=== PATIENT | female | born 1940 | race African-American/Black ===

== ENCOUNTER 2023-11-30 03:24 | Inpatient (IN) | payer OTHER ==
[~2023-11-30] VITALS: Ht 167.6 cm; Wt 75.3 kg
[2023-11-30 05:13] LABS: CHLORIDE 100 mEq/L (98-107); POTASSIUM 3.4 mEq/L (3.5-5.1); SODIUM 135 mEq/L (136-145)
[2023-11-30 05:14] LABS: CALCIUM 9.5 mg/dL (8.7-10.4); CARBON DIOXIDE 29 mEq/L (21-32)
[2023-11-30 05:19] LABS: CREATININE 0.7 mg/dL (0.6-1.0); GLUCOSE 120 mg/dL (70-105); UREA NITROGEN BLOOD 11 mg/dL (9-23)
[2023-11-30 05:39] LABS: TROPONIN I HIGH SENSITIVITY 45 ng/L (3.0-34)
[2023-11-30 06:18] LABS: BASOPHILS % 0.3 % (0.0-2.0); DIFFERENTIAL COMMENT 0; EOSINOPHILS % 0.3 % (0.0-5.0); HEMATOCRIT. 34.2 % (36.0-48.0); HEMOGLOBIN. 11.1 g/dL (12.0-16.0); LYMPHOCYTES % 12.6 % (20.0-50.0); MEAN CORPUSCULAR HEMOGLOBIN 24.4 pg (28.0-32.0); MEAN CORPUSCULAR HGB CONC 32.6 g/dL (31.0-37.0); MEAN CORPUSCULAR VOLUME 74.8 fL (81.0-99.0); MEAN PLATELET VOLUME 8.2 fl (7.4-10.4); MONOCYTES % 7.8 % (2.0-8.0); PLATELET 165 x1000/uL (130-400); RED BLOOD CELL COUNT 4.57 mill/uL (4.2-5.4); RED CELL DISTRIBUTION WIDTH 16.8 % (11.6-14.6); WHITE BLOOD COUNT 10.9 x1000/uL (4.5-11.0)
[2023-11-30 06:34] LABS: TROPONIN I HIGH SENSITIVITY 72 ng/L (3.0-34)
[2023-11-30] MEDS ORDERED: ACETAMINOPHEN 325MG TABLET PO PRN ×2 (08:45)
[2023-11-30] MEDS ORDERED: CLONIDINE 0.1MG TABLET PO PRN (08:45)
[2023-11-30] MEDS ORDERED: ONDANSETRON HCL 4MG/2ML INJ IV PRN (08:45)
[2023-11-30] MEDS ORDERED: IPRATROPIUM/ALBUTEROL 0.5-3(2.5)MG/3ML NEB HHN PRN (08:45)
[2023-11-30] MEDS ORDERED: DOCUSATE SODIUM 100MG CAPSULE PO PRN (08:45)
[2023-11-30 09:42] LABS: IRON 62 ug/dL (50-170)
[2023-11-30 09:44] LABS: TOTAL IRON BINDING CAPACITY 247 ug/dl (250-425)
[2023-11-30 09:58] LABS: TROPONIN I HIGH SENSITIVITY 74 ng/L (3.0-34)
[2023-11-30] MEDS: ASPIRIN 81MG EC TABLET PO SCH (11:45)
[2023-11-30] MEDS: FUROSEMIDE 40MG/4ML VIAL IVP SCH (12:27)
[2023-11-30 20:00] VITALS: BP 146/69; PULSE 81; RESP 20; TEMP 99
[2023-12-01] VITALS (7 sets, daily range): BP systolic 123–154; BP diastolic 55–78; PULSE 77–102; RESP 18–20; TEMP 97.3–99.9; O2SAT 100
[2023-12-01 06:04] LABS: CHLORIDE 104 mEq/L (98-107); POTASSIUM 3.5 mEq/L (3.5-5.1); SODIUM 141 mEq/L (136-145)
[2023-12-01 06:05] LABS: CALCIUM 9.4 mg/dL (8.7-10.4); CARBON DIOXIDE 31 mEq/L (21-32)
[2023-12-01 06:10] LABS: CREATININE 0.7 mg/dL (0.6-1.0); GLUCOSE 114 mg/dL (70-105); UREA NITROGEN BLOOD 11 mg/dL (9-23)
[2023-12-01 06:19] LABS: BASOPHILS % 0.3 % (0.0-2.0); DIFFERENTIAL COMMENT 0; EOSINOPHILS % 0.4 % (0.0-5.0); HEMATOCRIT. 36.7 % (36.0-48.0); HEMOGLOBIN. 11.8 g/dL (12.0-16.0); LYMPHOCYTES % 15.5 % (20.0-50.0); MEAN CORPUSCULAR HEMOGLOBIN 24.3 pg (28.0-32.0); MEAN CORPUSCULAR HGB CONC 32.2 g/dL (31.0-37.0); MEAN CORPUSCULAR VOLUME 75.4 fL (81.0-99.0); MEAN PLATELET VOLUME 8.7 fl (7.4-10.4); MONOCYTES % 7.9 % (2.0-8.0); NEUTROPHILS % 75.9 % (40.0-76.0); PLATELET 168 x1000/uL (130-400); RED BLOOD CELL COUNT 4.86 mill/uL (4.2-5.4); RED CELL DISTRIBUTION WIDTH 17.3 % (11.6-14.6); WHITE BLOOD COUNT 7.7 x1000/uL (4.5-11.0)
[2023-12-01] MEDS ORDERED: FURO-151 MT (15:59)
[2023-12-01] MEDS ORDERED: ASPI-1406 PO (15:59)
== END 2023-12-01 18:30 | disposition home or self-care (01) | DRG 313 ==
LOC: ER 03:40 → 5WST 04:41 → EDBEDREQTM 07:37 → 7WST 21:44
PROVIDERS: ADMIT Internal Medicine; ATTEND Internal Medicine
DX: R07.89 Other chest pain (principal); D53.9 Nutritional anemia, unspecified; I10 Essential (primary) hypertension; R60.0 Localized edema; E78.5 Hyperlipidemia, unspecified; R79.89 Other specified abnormal findings of blood chemistry
CPT/HCPCS: 36415; 71045; 80048; 82728; 83540; 83550; 83605; 83880; 84484; 85025; 85379; 93005; 93306; 93970; 99285; J1940